=== PATIENT | female | born 1945 | race Caucasian/White ===

== ENCOUNTER 2018-07-25 09:00 | Emergency (ER) | payer OTHER ==
[~2018-07-25] VITALS: Ht 152.4 cm; Wt 64.6 kg
[2018-07-25 09:16] VITALS: BP 171/56; PULSE 63; RESP 18; Ht 152.4 cm; Wt 64.6 kg
[2018-07-25] MEDS ORDERED: SOD CHLORIDE 0.9% 500 ML IV STA (09:53)
[2018-07-25] MEDS ORDERED: METHYLPREDNISOLONE 125 MG INJ IV ONE (10:00)
[2018-07-25] MEDS: DIPHENHYDRAMINE 25 MG CAP PO ONE ×2 (10:33→10:43)
[2018-07-25] MEDS: FAMOTIDINE 20 MG TAB PO ONE ×2 (10:33→10:44)
[2018-07-25] MEDS ORDERED: ONDANSETRON 4 MG INJ IV STA (10:49)
[2018-07-25] MEDS ORDERED: HYDR-842 PO (11:20)
[2018-07-25] MEDS ORDERED: MED4DP PO (11:20)
--- NOTE | 2018-07-25 14:14 | ERD ---
ER Documentation Chief Complaint Chief Complaint painful, itchy red blister like rash x1mth face & neck HPI 72-year-old woman complains of itchy, painful red rash over the face, upper back, upper extremities and torso x1 month. She denies using any medications for her symptoms, denies contact with new foods, medications, soaps, lotions or detergents. Patient denies shortness of breath or chest pain, no fevers or chills, no dysuria, no abdominal pain, no vomiting or diarrhea. ROS All systems reviewed and are negative except as per history of present illness. Medications Home Meds Active Scripts Hydroxyzine Hcl* (Atarax*) 25 Mg Tab, 25 MG PO TID PRN for ITCHING, #21 TAB Prov:ELENI SANCHEZ MD 07/25/18 Methylprednisolone* (Medrol* DOSE PACK) 4 Mg/Dose-Pack Tab.ds.pk, 4 MG PO . DIRECTED, #1 PACKET Prov:ELENI SANCHEZ MD 07/25/18 Allergies Allergies: Coded Allergies: No Known Allergy (Unverified , 07/25/18) PMhx/Soc History of Surgery: Yes (kidney stone removal) Anesthesia Reaction: No Hx Neurological Disorder: No Hx Respiratory Disorders: No Hx Cardiac Disorders: Yes (HTN) Hx Psychiatric Problems: No Hx Miscellaneous Medical Probl: No Hx Alcohol Use: No Hx Substance Use: No Hx Tobacco Use: No Smoking Status: Never smoker Physical Exam Vitals Vital Signs Date Temp Pulse Resp B/P (MAP) Pulse Ox O2 O2 Flow FiO2 Time Delivery Rate 07/25/18 97.3 63 18 171/56 98 09:16 (94) Physical Exam Const: No acute distress, afebrile HEENT: No oral lesions, no lip or glossal edema, no submandibular induration, no Kernig sign, no cervical spine deformity Resp: Clear to auscultation bilaterally Cardio: Regular rate and rhythm, no murmurs Abd: Soft, non tender, non distended. Normal bowel sounds Skin: Diffuse maculopapular dermatitis, pruritic, no target lesions, rash spares hands, palms, soles. Patient has no ulcers or purulent discharge, no pustules Back: No midline or flank tenderness Ext: No cyanosis, or edema, calves symmetrical Neur: Awake and alert x3, no focal deficits or facial asymmetry Psych: Normal Mood and Affect Result Diagram: 07/25/18 1026 07/25/18 1026 Results 24 hrs Laboratory Tests Test 07/25/18 10:26 White Blood Count 5.9 10^3/ul Red Blood Count 4.45 10^6/ul Hemoglobin 13.2 g/dl Hematocrit 40.6 % Mean Corpuscular Volume 91.2 fl Mean Corpuscular Hemoglobin 29.7 pg Mean Corpuscular Hemoglobin Concent 32.5 g/dl Red Cell Distribution Width 12.6 % Platelet Count 229 10^3/UL Mean Platelet Volume 10.6 fl Immature Granulocytes % 0.300 % Neutrophils % 57.4 % Lymphocytes % 30.3 % Monocytes % 8.5 % Eosinophils % 3.2 % Basophils % 0.3 % Nucleated Red Blood Cells % 0.0 /100WBC Immature Granulocytes # 0.020 10^3/ul Neutrophils # 3.4 10^3/ul Lymphocytes # 1.8 10^3/ul Monocytes # 0.5 10^3/ul Eosinophils # 0.2 10^3/ul Basophils # 0.0 10^3/ul Nucleated Red Blood Cells # 0.0 10^3/ul Urine Color YELLOW Urine Clarity CLEAR Urine pH 5.0 Urine Specific [place] 1.014 Urine Ketones NEGATIVE mg/dL Urine Nitrite NEGATIVE mg/dL Urine Bilirubin NEGATIVE mg/dL Urine Urobilinogen NEGATIVE mg/dL Urine Leukocyte Esterase NEGATIVE Leni/ul Urine Microscopic RBC 0 /HPF Urine Microscopic WBC 1 /HPF Urine Squamous Epithelial Cells FEW /HPF Urine Hemoglobin 2+ mg/dL Urine Glucose NEGATIVE mg/dL Urine Total Protein NEGATIVE mg/dl Sodium Level 144 mmol/L Potassium Level 3.8 mmol/L Chloride Level 105 mmol/L Carbon Dioxide Level 29 mmol/L Anion Gap 10 Blood Urea Nitrogen 15 mg/dl Creatinine 0.60 mg/dl Est Glomerular Filtrat Rate mL/min > 60 mL/min Glucose Level 114 mg/dl Calcium Level 9.6 mg/dl Total Bilirubin 0.8 mg/dl Direct Bilirubin 0.00 mg/dl Indirect Bilirubin 0.8 mg/dl Aspartate Amino Transf (AST/SGOT) 32 IU/L Alanine Aminotransferase (ALT/SGPT) 24 IU/L Alkaline Phosphatase 117 IU/L Total Protein 7.6 g/dl Albumin 4.5 g/dl Globulin 3.10 g/dl Albumin/Globulin Ratio 1.45 Lipase 54 U/L Current Medications Medications Dose Sig/Mariana Start Time Status Last (Trade) Ordered Route PRN Stop Time Admin Dose Reason Admin Sodium 500 ml @ Q1H STAT 07/25/18 DC 07/25/18 Chloride 500 mls/hr IV 09:53 10:34 07/25/18 10:52 25 mg ONCE ONCE 07/25/18 DC Diphenhydrami PO 10:00 ne HCl 07/25/18 10:25 (Benadryl) 125 mg ONCE ONCE 07/25/18 DC 07/25/18 Methylprednis IV 10:00 10:33 olone Sodium 07/25/18 10:25 Succinate (Solu-Medrol) Famotidine 20 mg ONCE ONCE 07/25/18 DC (Pepcid) PO 10:00 07/25/18 10:25 Ondansetron 4 mg ONCE STAT 07/25/18 DC 07/25/18 HCl (Zofran IV 10:49 10:55 Inj) 07/25/18 10:50 Procedures/MDM IV line was established patient was placed on talent associate rhythm strip revealed a sinus rhythm at about 80 bpm with upright P and T waves. Patient was afebrile I administered 500 cc normal saline IV, methylprednisolone 125 mg IV, famotidine p.o., Benadryl p.o., and Zofran 4 mg IV for later nausea CBC and electrolytes are normal, liver function tests were normal, urinalysis negative for infection Differential diagnoses considered, included but not limited to acute coronary syndrome, pulmonary embolism, aortic dissection, abdominal aortic aneurysm, sepsis, stroke, meningitis, encephalitis, pneumonia, appendicitis, cholecystitis, bowel obstruction, pyelonephritis, nephrolithiasis, cystitis, as well as metabolic, hematologic, and electrolyte abnormalities. As well as abscess, cellulitis, fractures, and dislocations. Patient feels much better at this time, and vital signs are normal, symptoms have improved. I did give strict instructions to return to the ED if symptoms continue or worsen, patient will otherwise follow-up with primary care physician. Patient understood instructions and agreed to plan. Disclaimer: Inadvertent spelling and grammatical errors are likely due to EHR/ dictation software use and do not reflect on the overall quality of patient care. Also, please note that the electronic time recorded on this note does not necessarily reflect the actual time of the patient encounter. Departure Diagnosis: Primary Impression: Atopic dermatitis Atopic dermatitis type: unspecified Qualified Codes: L20.9 - Atopic dermatitis, unspecified Condition: Good Patient Instructions: Atopic Dermatitis (Eczema) ELENI SANCHEZ MD Jul 25, 2018 14:14
== END 2018-07-25 11:59 | disposition home or self-care (01) ==
LOC: FTE 09:00
DX: L20.9 Atopic dermatitis, unspecified (principal); I10 Essential (primary) hypertension
CPT/HCPCS: 80053; 81001; 83690; 85025; J2405; J2930; J7040; 36415; 96374; 96375